=== PATIENT | male | born 1970 | race African-American/Black ===

== ENCOUNTER 2023-12-11 19:33 | Inpatient (IN) | payer OTHER ==
[~2023-12-11] VITALS: Ht 177.8 cm; Wt 101.6 kg
[2023-12-11 19:35] VITALS: O2SAT 100
[2023-12-11 20:23] LABS: BASOPHILS % 0.7 % (0.0-2.0); DIFFERENTIAL COMMENT 0; EOSINOPHILS % 0.8 % (0.0-5.0); HEMOGLOBIN. 9.2 g/dL (14.0-18.0); MEAN CORPUSCULAR HEMOGLOBIN 28.4 pg (28.0-32.0); MEAN CORPUSCULAR HGB CONC 34.2 g/dL (31.0-37.0); MEAN CORPUSCULAR VOLUME 82.9 fL (80.0-94.0); MEAN PLATELET VOLUME 7.5 fl (7.4-10.4); MONOCYTES % 6.6 % (2.0-8.0); NEUTROPHILS % 51.9 % (40.0-76.0); PLATELET 280 x1000/uL (130-400); RED BLOOD CELL COUNT 3.26 mill/uL (4.7-6.1); WHITE BLOOD COUNT 6.7 x1000/uL (4.5-11.0)
[2023-12-11 20:26] LABS: CHLORIDE 109 mEq/L (98-107); POTASSIUM 3.1 mEq/L (3.5-5.1); SODIUM 139 mEq/L (136-145)
[2023-12-11 20:27] LABS: CARBON DIOXIDE 22 mEq/L (21-32)
[2023-12-11 20:32] LABS: CREATININE 0.9 mg/dL (0.6-1.3); GLUCOSE 170 mg/dL (70-105); UREA NITROGEN BLOOD 10 mg/dL (9-23)
[2023-12-11 20:34] LABS: ALANINE AMINOTRANSFERASE 26 IU/L (10-49); ALBUMIN 3.5 g/dL (3.2-4.8); ASPARTATE AMINOTRANSFERASE 33 IU/L (<34); BILIRUBIN DIRECT 0.2 mg/dL (<=3.0)
[2023-12-11 20:35] LABS: BILIRUBIN TOTAL 0.5 mg/dL (0.1-1.0); PROTEIN TOTAL 4.9 g/dL (6.0-8.3)
[2023-12-11 20:36] LABS: INR 1.1; PARTIAL THROMBOPLASTIN TIME < 21.0 sec (23.4-31.0)
[2023-12-12] MEDS: IOHEXOL-350 100 ML BOTTLE ONE (01:52)
[2023-12-12 08:27] VITALS: BP 141/102; PULSE 100; RESP 16; TEMP 98.8
[2023-12-12 08:37] VITALS: BP 141/102; PULSE 107; RESP 16; TEMP 98.8
[2023-12-12] MEDS ORDERED: METRONIDAZOLE 500 MG PREMIX 100 ML IV SCH (09:15)
[2023-12-12] MEDS ORDERED: ACETAMINOPHEN 325MG TABLET PO PRN ×2 (09:30)
[2023-12-12] MEDS ORDERED: ONDANSETRON HCL 4MG/2ML INJ IV PRN (09:30)
[2023-12-12] MEDS ORDERED: IPRATROPIUM/ALBUTEROL 0.5-3(2.5)MG/3ML NEB HHN PRN (09:30)
[2023-12-12] MEDS ORDERED: HYDROCODONE/ACETAMINOPHEN 5/325MG TABLET PO PRN (09:30)
[2023-12-12] MEDS ORDERED: CLONIDINE 0.1MG TABLET PO PRN (09:30)
[2023-12-12 10:00] VITALS: BP 133/84; PULSE 87; RESP 26
[2023-12-12] MEDS: METRONIDAZOLE 500MG TABLET PO SCH (10:27)
[2023-12-12] MEDS: SODIUM CHLORIDE 0.9% 1,000 ML IV SCH (10:28)
[2023-12-12] MEDS ORDERED: CEFTRIAXONE 1GM/50ML 50 ML IV SCH (11:00)
[2023-12-12] MEDS ORDERED: LEVO750T68 MT (12:50)
[2023-12-12] MEDS ORDERED: METR-167 MT (12:50)
== END 2023-12-12 14:37 | disposition left against medical advice (07) | DRG 379 ==
LOC: ER 19:33 → 5EST 21:49 → EDBEDREQ 22:24
PROVIDERS: ADMIT Internal Medicine; ATTEND Internal Medicine
PROC: 30233N1 Transfusion of Nonautologous Red Blood Cells into Peripheral Vein, Percutaneous Approach (ICD-10-PCS; principal; 2023-12-11)
DX: K57.33 Diverticulitis of large intestine without perforation or abscess with bleeding (principal); K57.31 Diverticulosis of large intestine without perforation or abscess with bleeding; K52.9 Noninfective gastroenteritis and colitis, unspecified; K40.20 Bilateral inguinal hernia, without obstruction or gangrene, not specified as recurrent; D64.9 Anemia, unspecified; I10 Essential (primary) hypertension; E87.6 Hypokalemia; K76.0 Fatty (change of) liver, not elsewhere classified; R16.0 Hepatomegaly, not elsewhere classified; Z53.29 Procedure and treatment not carried out because of patient's decision for other reasons
CPT/HCPCS: 36415; 74174; 80048; 80076; 85025; 86850; 86900; 86920; 93005; 99291; J0696; J7030; P9016; Q9967